=== PATIENT | female | born 1950 | race Caucasian/White ===

== ENCOUNTER 2018-04-29 08:35 | Emergency (ER) | payer MEDICARE, MEDICAID ==
--- NOTE | 2018-04-29 12:08 | RAD ---
HISTORY: Fall w/ Rt hip pain COMPARISONS: None VIEWS: 3 , Frontal view of the pelvis with frontal and frog-leg views of the right hip FINDINGS: BONE DENSITY: Normal. BONES: There is no displaced fracture. JOINTS: There is advanced osteoarthritis of the right hip. ALIGNMENT: There is no dislocation. SOFT TISSUES: Unremarkable. OTHER FINDINGS: Degenerative changes are noted of the spine.. IMPRESSION: OSTEOARTHRITIS. NO RADIOGRAPHIC EVIDENCE FOR HIP FRACTURE. X-RAYS MAY BE NEGATIVE WITH NONDISPLACED HIP FRACTURE, IF THERE IS PERSISTENT CLINICAL CONCERN, RECOMMEND CONSIDERATION OF MRI. IN THE SETTING OF CONTRAINDICATION TO MRI OR LIMITATION IN EMERGENT ACCESS TO MRI, CT WOULD BE SUGGESTED.
--- NOTE | 2018-04-29 12:24 | ED ---
Lower Extremity - HPI Summary HPI Summary: Pt presents with pain in her right hip after falling this morning. She reports she was getting coffee from the kitchen and as she turned she fell and landed on her right hip. She is not sure if her feet got caught and she lost her balance chanted up on the floor. She denies numbness tingling or weakness and no chest pain, dizziness, fatigue or lightheadedness. She said she sat on the floor for a while she was concerned that she could not get back up and she did not attempt to get back out. She crawled on all fours into another room to use her phone which she was able to do without difficulty. Her sister and her sister's came to the house to help her - sister is with her today and reports she was able to stand and ambulate without difficulty. Patient ambulated in today without pain or difficulty. She denies any history of back issues however does report and history of right thigh pain. She was referred to physical therapy however she declined as she was concerned she would have to go 4 times a week and when be a drive herself she doesn't have a car. She is not tried anything for pain prior to arrival. Denies change in bowel or bladder habits. - History of Current Complaint Chief Complaint: EDExtremityLower Stated Complaint: FALL Time Seen by Provider: 04/29/18 08:57 Hx Obtained From: Patient, Family/Laboratory Animal Caretaker - sister Pain Intensity: 3 - Allergies/Home Medications Allergies/Adverse Reactions: Allergies Allergy/AdvReac Type Severity Reaction Status Date / Time Sulfa (Sulfonamide Allergy Rash Verified 04/29/18 08:44 Antibiotics) PMH/Surg Hx/FS Hx/Imm Hx Infectious Disease History: No Infectious Disease History: Denies: Traveled Outside the [place] in Last 30 Days - Social History Alcohol Use: None Substance Use Type: Reports: None Smoking Status (MU): Never Smoked Tobacco Physical Exam Vital Signs On Initial Exam: Initial Vitals Temp Pulse Resp BP Pulse Ox 98.3 F 94 16 135/99 96 04/29/18 08:39 04/29/18 08:39 04/29/18 08:39 04/29/18 08:39 04/29/18 08:39 Diagnostics - Vital Signs Vital Signs Temp Pulse Resp BP Pulse Ox 04/29/18 08:39 98.3 F 94 16 135/99 96 - Laboratory Lab Statement: Any lab studies that have been ordered have been reviewed, and results considered in the medical decision making process. Discharge - Sign-Out/Discharge Documenting (check all that apply): Patient Departure - Discharge Plan Condition: Stable Disposition: HOME Patient Education Materials: Fall Prevention for Older Adults (ED), Hip Pain ( ED) Referrals: Nita Boyce MD [Primary Care Provider] - Additional Instructions: Your x-ray does not reveal a fracture today however if your pain persists or worsens, you may benefit from additional imaging. In the meantime, you may apply ice, take ibuprofen with food and perform gentle range of motion stretches to prevent stiffness. If your soreness persists beyond one to 2 weeks , follow up with her PCP. If it is worse in the meantime, return to the emergency department. Additionally, we discussed your referral by her PCP to physical therapy to strengthen and help with pain in your left thigh. This may help prevent future falls. Call today to reschedule that appointment once your right hip is feeling better. - Billing Disposition and Condition Condition: STABLE Disposition: Home
[2018-04-29 13:10] VITALS: BP 152/99
== END 2018-04-29 13:09 | disposition home or self-care (01) ==
LOC: ED 08:35
DX: M25.551 Pain in right hip (principal)
CPT/HCPCS: 99282

== ENCOUNTER 2018-12-16 19:35 | Emergency (ER) | payer MEDICARE, MEDICAID ==
--- NOTE | 2018-12-16 20:08 | ED ---
HPI Chest Pain - HPI Summary HPI Summary: A 68 y/o female presents to [facility] with a chief complaint of chest pain starting around 18:30 today, lasting for a few minutes. She had lunch around noon, took a nap at around 14:00 and woke up between 18:00 and 19:00 today. She claims that her chest pain was mid sternal. She denies pain radiating to her neck back or shoulder. She denies N/V or diaphoresis. She claims that she has experienced similar discomfort yesterday. She denies a Hx of DM, but has a Hx of HTN. She is a former smoker, quitting when she was young. She reports gaining weight. She denies taking medications for BP. FHx of [place], mother and father both from [place]. - History of Current Complaint Chief Complaint: EDChestPainROMI Time Seen by Provider: 12/16/18 20:01 Hx Obtained From: Patient Hx Last Menstrual Period: post menopause Onset/Duration: Started Hours Ago, Resolved Timing: Intermittent - lasting minutes Initial Severity: Moderate Current Severity: None Pain Intensity: 0 Pain Scale Used: 0-10 Numeric Chest Pain Location: Mid Sternal Chest Pain Radiates: No Character: Other: - discomfort Aggravating Factor(s): Nothing Alleviating Factor(s): Nothing Associated Signs and Symptoms: Positive: Other: - recently gained weight. Negative: Fever, Nausea, Vomiting - Allergy/Home Medications Allergies/Adverse Reactions: Allergies Allergy/AdvReac Type Severity Reaction Status Date / Time Sulfa (Sulfonamide Allergy Rash Verified 12/16/18 20:09 Antibiotics) PMH/Surg Hx/FS Hx/Imm Hx Endocrine/Hematology History: Denies: Hx Anticoagulant Therapy, Hx Blood Disorders Cardiovascular History: Reports: Hx Hypertension Musculoskeletal History: Reports: Hx Arthritis, Other Musculoskeletal History - Rt thigh pain - chronic (declined PT) Sensory History: Reports: Hx Contacts or Glasses Opthamlomology History: Reports: Hx Contacts or Glasses - Surgical History Surgery Procedure, Year, and Place: gall bladder removed years ago Infectious Disease History: No Infectious Disease History: Denies: Traveled Outside the [place] in Last 30 Days - Family History Known Family History: Positive: Cardiac Disease, Other - [place] - Social History Alcohol Use: None Hx Substance Use: No Substance Use Type: Reports: None Hx Tobacco Use: No Smoking Status (MU): Never Smoked Tobacco Review of Systems Negative: Fever Positive: Chest Pain - PRIMARY CLINICIAN Negative: Vomiting, Nausea All Other Systems Reviewed And Are Negative: Yes Physical Exam - Summary Physical Exam Summary: Appearance: Well-appearing, Well-nourished, lying in bed comfortably Skin: Warm, dry, no obvious rash Eyes: sclera anicteric, no conjunctival pallor ENT: mucous membranes moist, pharynx appears normal Neck: Supple, nontender Respiratory: Clear to auscultation, no signs of respiratory distress Cardiovascular: mild tachycardia. Normal S1, S2. No murmurs. Normal distal pulses in tibial and radial bilaterally. Abdomen: Soft, nontender, normal active bowel sounds present Musculoskeletal: Normal, Strength/ROM Intact Neurological: A&Ox3, awake and alert, mentation is normal, speech is fluent and appropriate Psychiatric: affect is normal, does not appear anxious or depressed Triage Information Reviewed: Yes Vital Signs On Initial Exam: Initial Vitals Temp Pulse Resp BP Pulse Ox 98.6 F 106 20 168/92 100 12/16/18 19:43 12/16/18 19:43 12/16/18 19:43 12/16/18 19:43 12/16/18 19:43 Vital Signs Reviewed: Yes Diagnostics - Vital Signs Vital Signs Temp Pulse Resp BP Pulse Ox 12/16/18 19:43 98.6 F 106 20 168/92 100 - Laboratory Result Diagrams: 12/16/18 20:39 12/16/18 20:39 Lab Statement: Any lab studies that have been ordered have been reviewed, and results considered in the medical decision making process. - EKG 19:55 Cardiac Rate: Tachycardia - 102 bpm EKG Rhythm: Sinus Tachycardia Summary of EKG Findings: Sinus tachycardia at 102 bpm, inferior infarct, old. Re-Evaluation - Re-Evaluation First Eval Re-Evaluation Time: 01:17 Change: Improved Comment: No further chest pain, looks well, safe for DC. Chest Pain Course/Dx - Course Course Of Treatment: A 68 y/o female presents to [facility] with a chief complaint of chest pain starting around 18:30 today, lasting for a few minutes. The physical exam revealed mild tachycardia. EKG at 19:55 showed Sinus tachycardia at 102 bpm, inferior infarct, old. In the ED course the patient was given Aspirin PO. Blood work and chemistries obtained and are WNL. HEART score is 3. The patient will be discharged home and follow up with her PCP. She is agreeable with this plan. - Diagnoses Provider Diagnoses: Chest pain Discharge - Sign-Out/Discharge Documenting (check all that apply): Patient Departure - DC Patient Received Moderate/Deep Sedation with Procedure: No - Discharge Plan Condition: Good Disposition: HOME Patient Education Materials: Chest Pain (ED) Referrals: Nita Boyce MD [Primary Care Provider] - 1 Week - Billing Disposition and Condition Condition: GOOD Disposition: Home - Attestation Statements Document Initiated by Ayden: Yes Documenting Scribe: Luis A Krishnamurthy Provider For Whom Ayden is Documenting (Include Credential): Sridhar Winkler MD Scribe Attestation: ILuis A, ciroibed for Sridhar Winkler MD on 01/02/19 at 1004. Scribe Documentation Reviewed: Yes Provider Attestation: The documentation as recorded by the Luis A mata accurately reflects the service I personally performed and the decisions made by me, Sridhar Winkler MD Status of Scribe Document: Viewed
[2018-12-16] MEDS ORDERED: Aspirin TAB* 325 MG PO ONE (20:43)
[2018-12-16 20:48] LABS: ABS Basophils 0 10^3/ul (0-0.2); ABS Eosinophils 0 10^3/ul (0-0.6); ABS Monocytes 0.5 10^3/ul (0-0.8); ABS Neutrophils 3.4 10^3/ul (1.5-7.7); ABS Nucleated RBC 0 10^3/ul; Eosinophil % 0.4 %; Hematocrit 41 % (33-41); Hemoglobin 13.9 g/dL (12.0-16.0); Lymphocyte % 20.4 %; Mean Corpuscular HGB Conc 34 g/dL (31-36); Mean Corpuscular Hemoglobin 28 pg (27-31); Mean Corpuscular Volume 81 fL (80-97); Mean Platelet Volume 7.8 fL (7.4-10.4); Nucleated Red Blood Cells % 0; Platelet Count 296 10^3/uL (150-450); Red Blood Count 5.04 10^6 /uL (3.70-4.87); Red Cell Distribution Width 14 % (10.5-15)
[2018-12-16] MEDS ORDERED: Aspirin 81 mg CHEW TAB* 81 MG TAB.CHEW ONE (20:50)
[2018-12-16 21:07] LABS: Albumin 4.1 g/dL (3.2-5.2); Albumin/Globulin Ratio 1.8 (1-3); BUN/Creatinine Ratio 10.1 (8-20); Calcium 9.4 mg/dL (8.6-10.3); EGFR African American 101.8 (>60); EGFR Non-African American 84.1 (>60); Globulin 2.3 g/dL (2-4); Potassium 3.8 mmol/L (3.5-5.0); Total Bilirubin 0.7 mg/dL (0.2-1.0); Total Protein 6.4 g/dL (6.4-8.9)
[2018-12-17 01:39] VITALS: BP 153/93
== END 2018-12-17 01:40 | disposition home or self-care (01) ==
LOC: ED 19:35
DX: R07.89 Other chest pain (principal); R00.0 Tachycardia, unspecified; R63.5 Abnormal weight gain; G89.29 Other chronic pain; M79.651 Pain in right thigh; Z88.2 Allergy status to sulfonamides; Z87.891 Personal history of nicotine dependence
CPT/HCPCS: 36415; 80053; 84484; 85025; 93005; 99284; A9270-GY

== ENCOUNTER 2019-06-08 09:14 | Inpatient (IN) | payer MEDICARE, MEDICAID ==
[2019-06-08 10:08] LABS: ABS Lymphocytes 1.3 10^3/ul (1.0-4.8); ABS Monocytes 0.7 10^3/ul (0-0.8); ABS Neutrophils 6.3 10^3/ul (1.5-7.7); Eosinophil % 0.3 %; Hematocrit 43 % (35-47); Hemoglobin 14.5 g/dL (12.0-16.0); Mean Corpuscular HGB Conc 34 g/dL (31-36); Mean Corpuscular Hemoglobin 28 pg (27-31); Mean Corpuscular Volume 82 fL (80-97); Mean Platelet Volume 8.1 fL (7.4-10.4); Nucleated Red Blood Cells % 0.1; Platelet Count 338 10^3/uL (150-450); Red Blood Count 5.19 10^6 /uL (3.70-4.87); Red Cell Distribution Width 14 % (10-15); White Blood Count 8.4 10^3/uL (3.5-10.8)
--- NOTE | 2019-06-08 10:15 | ED ---
Neurological HPI - HPI Summary HPI Summary: Pt presents to the ED with sister with symptoms of antipsychotic-induced parkinsonism. Pt has been on Navil for many years until this was discontinued. After which she was placed on Prolixin in May 2018. She was subsequently placed on 1mg Cogentin daily. Approximately 4mos later, she began to develop confusion and memory loss. States her symptoms of shaking and inability to respond to questions and slow to respond in general has been becoming worse. She had a follow up with her PCP and had a brain CT obtained which showed no dementia or other acute findings. She also had a follow up with her psychiatrist, Gladys Posada and her counselor Kristyn Mansfield. 2 weeks ago, her medications were cut in including her Cogentin. Since that time, her symptoms have become drastically worse. Her sister at bedside she is getting to the point where she can no longer do simple daily activities including making food at home. She continues to eat and drink OK per patient. Denies any pain, recent illness or other symptoms. States she is not suicidal, but does not want to live in this misery. Prior to her medication changes in 2018 , she denied having any of these symptoms including confusion/memory loss. - History of Current Complaint Chief Complaint: EDNeurologicalDeficit Stated Complaint: MHE PER PT Time Seen by Provider: 06/08/19 09:31 Hx Obtained From: Patient Hx Last Menstrual Period: post menopause Onset/Duration: Gradual Onset Timing: Constant Onset Severity: Severe Current Severity: Severe Pain Intensity: 0 Character: Confusion, Other: - memory loss, confusion, slow to respond Associated Signs and Symptoms: Positive: Visual Changes, Memory Loss, Confusion TPA Considered: No - Allergy/Home Medications Allergies/Adverse Reactions: Allergies Allergy/AdvReac Type Severity Reaction Status Date / Time Sulfa (Sulfonamide Allergy Rash Verified 06/08/19 09:26 Antibiotics) Home Medications: Home Medications Cholecalciferol TAB* [Vitamin D TAB*] 50,000 units PO WEEKLY 06/08/19 [History Confirmed 06/08/19] PMH/Surg Hx/FS Hx/Imm Hx Previously Healthy: Yes Endocrine/Hematology History: Denies: Hx Anticoagulant Therapy, Hx Blood Disorders Cardiovascular History: Reports: Hx Hypertension Musculoskeletal History: Reports: Hx Arthritis, Other Musculoskeletal History - Rt thigh pain - chronic (declined PT) Sensory History: Reports: Hx Contacts or Glasses Opthamlomology History: Reports: Hx Contacts or Glasses - Surgical History Surgery Procedure, Year, and Place: gall bladder removed years ago - Immunization History Hx Pertussis Vaccination: No Immunizations Up to Date: Yes Infectious Disease History: No Infectious Disease History: Denies: Traveled Outside the [place] in Last 30 Days - Family History Known Family History: Positive: Cardiac Disease, Other - [place] - Social History Occupation: Unemployed Lives: Alone Alcohol Use: None Hx Substance Use: No Substance Use Type: Reports: None Hx Tobacco Use: No Smoking Status (MU): Never Smoked Tobacco Review of Systems Constitutional: Negative Negative: Fever, Chills, Fatigue, Skin Diaphoresis Negative: Blurred Vision Negative: Palpitations, Chest Pain Negative: Shortness Of Breath, Cough Negative: Arthralgia, Myalgia Skin: Negative Neurological: Other - parkinsonian symptoms Negative: Weakness, Paresthesia, Numbness, Syncope Positive: Depressed All Other Systems Reviewed And Are Negative: Yes Physical Exam Triage Information Reviewed: Yes Vital Signs On Initial Exam: Initial Vitals Temp Pulse Resp BP Pulse Ox 97.9 F 118 18 153/103 98 06/08/19 09:16 06/08/19 09:16 06/08/19 09:16 06/08/19 09:16 06/08/19 09:16 Vital Signs Reviewed: Yes Appearance: Positive: Well-Appearing, Well-Nourished Skin: Positive: Warm, Skin Color Reflects Adequate Perfusion Head/Face: Positive: Normal Head/Face Inspection Eyes: Positive: EOMI, TONY, Conjunctiva Clear Neck: Positive: Supple, Nontender, No Lymphadenopathy Respiratory/Lung Sounds: Positive: Clear to Auscultation, Breath Sounds Present Cardiovascular: Positive: RRR, Pulses are Symmetrical in both Upper and Lower Extremities Musculoskeletal: Positive: Normal, Strength/ROM Intact Neurological: Positive: Abnormal Gait, Ataxic Gait, Speech Normal Psychiatric: Positive: Depressed AVPU Assessment: Alert Procedures - Sedation Patient Received Moderate/Deep Sedation with Procedure: No Diagnostics - Vital Signs Vital Signs Temp Pulse Resp BP Pulse Ox 06/08/19 09:37 112 164/97 96 06/08/19 09:34 5 06/08/19 09:16 97.9 F 118 18 153/103 98 - Laboratory Result Diagrams: 06/08/19 09:57 06/08/19 09:57 Lab Statement: Any lab studies that have been ordered have been reviewed, and results considered in the medical decision making process. 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 Non-Paretic Hand: Both Correctly Best Gaze (Only Horizontal Eye Movement): Normal Visual Field Testing: No Visual Loss Facial Paresis-Pt to Smile & Close Eyes or Grimace Symmetry: Normal/Symmetrical Motor Function - Right Arm: No Drift-Holds 10 Seconds Motor Function - Left Arm: No Drift-Holds 10 Seconds Motor Function - Right Leg: No Drift-Holds 10 Seconds Motor Function - Left Leg: No Drift-Holds 10 Seconds Limb Ataxia-Must be out of Proportion to Weakness Present: Absent Sensory (Use Pinprick to Test Arms/Legs/Trunk/Face): Normal Best Language (Describe Picture, Name Items): No Aphasia Dysarthria (Read Several Words): Normal Extinction and Inattention: No Abnormality Total Score: 0 Course/Dx - Course Course Of Treatment: Pt presents to the ED with sister with symptoms of antipsychotic-induced parkinsonism. Pt has been on Navil for many years until this was discontinued. After which she was placed on Prolixin in May 2018. She was subsequently placed on 1mg Cogentin daily. Approximately 4mos later, she began to develop confusion and memory loss. States her symptoms of shaking and inability to respond to questions and slow to respond in general has been becoming worse. She had a follow up with her PCP and had a brain CT obtained which showed no dementia or other acute findings. She also had a follow up with her psychiatrist, Gladys Posada and her counselor Kristyn Mansfield. 2 weeks ago , her medications were cut in including her Cogentin. Since that time, her symptoms have become drastically worse. Her sister at bedside she is getting to the point where she can no longer do simple daily activities including making food at home. She continues to eat and drink OK per patient. Denies any pain, recent illness or other symptoms. States she is not suicidal, but does not want to live in this misery. Prior to her medication changes in 2018 , she denied having any of these symptoms including confusion/memory loss. She is cleared for MHE at this time. - Differential Dx Differential Diagnoses Neuro: Positive: Other - parkinsonian symptoms, EPS, cogweeling, dystonia, medication reaction, schizophrenia - Diagnoses Provider Diagnoses: Extrapyramidal and movement disorder Discharge ED - Sign-Out/Discharge Documenting (check all that apply): Patient Departure All imaging exams completed and their final reports reviewed: No - Discharge Plan Condition: Fair Disposition: ADMITTED TO [facility] - Billing Disposition and Condition Condition: FAIR Disposition: Admitted to [facility]
[2019-06-08 10:26] LABS: Albumin/Globulin Ratio 1.6 (1-3); BUN/Creatinine Ratio 16.9 (8-20); C Reactive Protein 5.91 mg/L (<8.01); Calcium 9.5 mg/dL (8.6-10.3); EGFR Non-African American 90.1 (>60); Globulin 2.5 g/dL (2-4); Magnesium 2.1 mg/dL (1.9-2.7); Potassium 3.9 mmol/L (3.5-5.0); Total Bilirubin 0.6 mg/dL (0.2-1.0); Total Protein 6.5 g/dL (6.4-8.9)
[2019-06-08] MEDS ORDERED: Al Hydrox/Mg Hydrox/Simet LIQ* 30 ML UDC PO PRN (12:49)
[2019-06-08] MEDS ORDERED: Acetaminophen TAB* 325 MG PO PRN (12:49)
[2019-06-08] MEDS: Vitamin THERAPEUTIC TAB PO SCH (13:12)
[2019-06-08 16:17] LABS: TSH (Thyroid Stimulating Horm) 1.53 mcIU/mL (0.34-5.60)
--- NOTE | 2019-06-08 18:55 | CONS ---
CONSULTATION REPORT: ADDENDUM: FAMILY HISTORY: Positive for heart disease. REVIEW OF SYSTEMS: The patient denies any bowel problems. Her appetite has been good. She denied chest pain, shortness of breath. She feels her weight has been stable. PHYSICAL EXAMINATION: Heart rate 112, respirations 24, O2 saturation 100% on room air, blood pressure 155/120. Height 5 feet 1 inch, weight 180 pounds, BMI 34.0. She is a pleasant elderly woman, somewhat flat affect. She responds appropriately and is cooperative and pleasant. HEENT: No signs of head trauma. Pupils equal and round. Neck is supple. No JVD, adenopathy, or thyromegaly. Heart and lungs are clear to auscultation and percussion. Heart is regular without murmurs or rubs. Abdomen is obese. No masses or organomegaly. No tenderness. There is no pedal edema. She is oriented x3. She has a rather marked Parkinsonian tremor of the hands and mouth. IMPRESSION AND RECOMMENDATIONS: Her tachycardia may well be related to the stress of her hospitalization. Add-on TSH is pending, assuming this is normal to have an echocardiogram tomorrow to make sure there is no underlying heart disease. 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 I will discuss with the on- call neurologist possible treatment recommendations. Thank you for allowing me to see your patient in consultation. [id number]/[facility] #: [id number] ADOLFO
--- NOTE | 2019-06-08 19:12 | CONS ---
CONSULTATION REPORT: DATE OF CONSULT: 06/08/19 HISTORY OF PRESENT ILLNESS: This 68-year-old woman presented to the emergency room today and was admitted to the mental health unit. The patient has had symptoms of antipsychotic-induced parkinsonism. She had been on Advil for many years until it was discontinued. About a year ago, she was placed on Prolixin and subsequently put on Cogentin 1 mg daily. Four months later, she developed confusion, memory loss and shaking. She says in the past month the shaking has gotten worse. Her psychiatrist cut her Prolixin and Cogentin both in half and her symptoms have become worse. PAST MEDICAL HISTORY: The patient has had gallbladder surgery. She is a nulligravida. SOCIAL HISTORY: She does not smoke or use alcohol. Her surrogate decision maker is her sister, Sarah. FAMILY HISTORY: Positive for heart disease. REVIEW OF SYSTEMS: The patient denies any bowel problems. Her appetite has been good. She denied chest pain, shortness of breath. She feels she has lost about 20 pounds recently for no reason she is aware of PHYSICAL EXAMINATION: Heart rate 112, respirations 24, O2 saturation 100% on room air, blood pressure 155/120. Height 5 feet 1 inch, weight 180 pounds, BMI 34.0. She is a pleasant elderly woman, somewhat flat affect. She responds appropriately and is cooperative and pleasant. HEENT: No signs of head trauma. Pupils equal and round. Neck is supple. No JVD, adenopathy, or thyromegaly. Heart and lungs are clear to auscultation and percussion. Heart is regular without murmurs or rubs. Abdomen is obese. No masses or organomegaly. No tenderness. There is no pedal edema. She is oriented x3. She has a rather marked Parkinsonian tremor of the hands and mouth. IMPRESSION AND RECOMMENDATIONS: Her tachycardia may well be related to the stress of her hospitalization. Add-on TSH is pending, assuming this is normal to have an echocardiogram tomorrow to make sure there is no underlying heart disease. 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 When her antipsychotic regimen is re-started, re-starting benztropine should be considered. It is possible the dose had been decreased due to side effects, and her primary psychiatrist should be involved in that decision. Thank you for allowing me to see your patient in consultation. [id number]/[facility] #: [id number] A- [id number]/[facility] #: [id number] ADOLFO
[2019-06-09] MEDS ORDERED: Pneumococcal *Vac Polyvalent 0.5 ML VIAL IM ONE (09:00)
--- NOTE | 2019-06-09 10:46 | HP ---
H&P (Free Text) History and Physical: Justification for admission: Immediate Safety. CC " I dont know" The patient was brought to [facility] by her sister upon noticing confusion and changes in the patients behavior. The patient reported living alone and feels lonely at times. Per the emergency room evaluation the patient verbalized to her family that she is not sure if she is going to make it. They were not sure what she was referring to and thought she was talking about suicide. Patient has been on Navane for 30 years and this was discontinued from the market and in May 2018 was started on prolixin and cogentin. Approximately 4 months ago her tremor in both of her hands began to get worse. The patient denied access to firearms and her family confirmed this to be true. The patient reported poor sleep due to moving her legs around. Patient has had diminished appetite. The patient denied homicidal ideation intent or plan. The patient denied auditory and/ or visual hallucinations. MDD Denied feeling depressed. Denied having diminished interests which were found to be enjoyable in the past. Denied having crying spells , feeling empty inside , feelings of hopelessness , and worthlessness. Denied unintentional weight loss and appetite. Denied interruption of sleep , or feeling tired throughout the day. Denied loss of energy or lack of motivation to complete tasks. Denied overwhelming feelings of guilt or decreased concentration. Denied recurrent thoughts of . Denied thoughts that they would be better off . Anxiety Denied having symptoms of anxiety such as having times where heart feels that it is beating out of chest , sweaty palms, or shallow breathing. Denied having uncomfortable or intrusive thoughts. Denied feeling restless, high strung, or worrying too much most of the time. Bipolar Denied symptoms of soumya such as having many ideas at once. Denied increased talkativeness where no one can interrupt. Denied feeling irritable most of the time while having an persistent abundance of energy most of the day without the use of energy drinks, stimulants, or recreational drug use. Denied an increase in intensity in goal directed activities. Denied having the decreased need to sleep for days , having prolonged elevated mood , or feeling on top of the world. Denied impulsive risky sexual encounters. Denied spending money recklessly , going on spending sprees wiping out savings. Denied impulsively traveling out of town or country, having super coffey, and unrealistic wealth or fame. Psychosis Does not endorse hearing things that other people do not hear or seeing things other people do not see. Denied feeling that TV is making references. Denied feeling that people are spying , following , or reading their thoughts. Phobias: Patient denied having excessive fear of a particular thing or situation. Eating disorders: Patient denied having excessive eating habits or feelings of guilt after eating. Denied repeated episodes of self induced vomiting after eating. PTSD Denied flashbacks, nightmares and avoidance of a prior traumatic event. PAST PSYCHIATRIC HISTORY: Prior Diagnosis : Schizophrenia History of past Psychiatric Hospitalizations: 1 prior psychiatric admission in 1968 at [facility] History of past suicide/homicide attempts : 1 past suicide attempt in 1968. No history of violence. Outpatient follow-up: [facility] Dr. Posada Medications: Past trials of medications include Navane for 30 years and was discontinued in May 2018. prolixin 10mg po daily and Cogentin 2mg BID Guardianship: None. FAMILY HISTORY: - Suicide: Cousin from suicide. - Mental illness: Denied a history of mental health in immediate family members. - Substance abuse: Denied substance abuse among family members. SUBSTANCE ABUSE HISTORY: Denied using alcohol, tobacco, heroin cocaine or other illicit substances. Denied abusing pills for recreational use. Denied past Substance abuse treatment. SOCIAL HISTORY: - Denied a history of childhood physical and or sexual abuse Born in [place] and raised by both parents. - Education: Completed high school. No history of special education. 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 - Relationship: Single and has no children. - Legal history: Denied - service history: Denied PAST MEDICAL HISTORY: Restless legs syndrome, Hypertension. - Allergies: Sulfa drugs Physical Exam: Please see ED note Mental Status Exam on Admission APPEARANCE : 68 year old female who appears stated age. Patient is not malodourous, and appears to have fair hygiene and grooming. BEHAVIOR: Cooperative , calm EYE CONTACT: Fair PSYCHOMOTOR ACTIVITY: No agitation MOVEMENTS: Bilateral upper extremity resting tremor and andreas mouth movements SPEECH : Normal rate, rhythm, volume and tone. MOOD : "Fine " AFFECT : Type is depressed, Range is blunted with shallow depth Mood Incongruent THOUGHT PROCESS: Formulated and organized in a logical, linear goal directed manner. THOUGHT CONTENT: no delusions, obsessions, phobias or preoccupations. PERCEPTION: No current auditory or visual hallucinations. Doesnt appear to be responding to internal cues. No evidence of depersonalization , de-realization, or illusions SUICIDALITY passive suicidal ideation HOMICIDALITY Denied homicidal ideation, intent or plan. Insight/judgment: Poor insight and judgment ORIENTATION: Oriented to self, month, state, season current president, not to year or place 1/3 delayed word recall. Clock drawing [place] and numbers completed but incorrect clock time and hands Diagnosis on Admission: Schizophrenia. Tardive Dyskinsia. Drug induced Parkinsonism Vs. 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 Plan #Admit to BSU, Q15 minute observation. Start regular diet. Encourage participation in activities on the milieu. #Patient evaluated in ED and was determined by the emergency room Physician to be medically fit for admission to the BSU. # Justification for Admission: For immediate safety per outlined in the [place] Mental Hygiene Code. # The patient requires psychiatric inpatient admission at this time to assure safety, receive treatment and work toward stabilization. # Labs ordered: CBC, CMP, UDS, TSH, HBA1c, TSH, Toxicology screen, Urine analysis, and lipid profile. EKG ordered for risk of QT prolongation of antipsychotic medication. # Obtain collateral information obtained from her sister. # Collaboration with Social Work # Nursing care facility resources to be provided to family # AIMS score 17 due to long history of 1st generation anti- psychotic # Discontinue prolixin and cogentin due to side effects. Start seroquel 100mg po qhs Data shows less risk for Parkinsons features # Neurology contacted and outpatient follow up appointment will be arranged for possible Parkinsons disease evaluation # Hospitalist consult completed for hypertension and tachycardia and plan to start treatment. #Goals before discharge include: Assure safety Tentative Discharge: Pending psychiatric stabilization The risks, benefits, and alternative treatment options were discussed as well as the risks of refusing treatment. After this discussion and an acknowledgement of this understanding was made. A risk/ benefit assessment of treatment was considered and discussed with the patient. When comparing the risks of treatment with the dangers of not receiving treatment, the benefits of treatment outweigh the treatment risks at this time. Risks of allergy, suicidal ideation, behavioral changes, dystonia, rashes, electrolyte imbalances, movement disorders, cardiac conduction changes, serotonin syndrome, metabolic risks and NMS were among some of the risks discussed. Sodium 137 mmol/L (135-145) 06/08/19 09:57 Potassium 3.9 mmol/L (3.5-5.0) 06/08/19 09:57 BUN 11 mg/dL (6-24) 06/08/19 09:57 Creatinine 0.65 mg/dL (0.51-0.95) 06/08/19 09:57 Calcium 9.5 mg/dL (8.6-10.3) 06/08/19 09:57 Magnesium 2.1 mg/dL (1.9-2.7) 06/08/19 09:57 AST 15 U/L (13-39) 06/08/19 09:57 ALT 14 U/L (7-52) 06/08/19 09:57
--- NOTE | 2019-06-09 11:14 | ECHO ---
*[facility]* [place] [address] Fax #: [phone] Transthoracic Echocardiogram Patient: Cassie Reyes : 1950 Study Date: 06/09/2019 Age: 68 Gender: F HR: 121 bpm Height: 61 in /154.9 cm BSA: 1.81 m^2 Weight: 179.6 lb /81.6 kg BMI: 34 kg/m^2 *Abrasive Grader: * Karin Patterson [facility] *Referring Physician: * Tam Acosta *Reading Physician: * Cal Sears MD Indications: Abnormal EKG. History: Risk factors: Hypertension. Parkinson's Disease. Tremors. Conclusions Summary: - Left ventricle: Systolic function is normal. The estimated ejection fraction is 60-65%. Wall motion is normal; there are no regional wall motion abnormalities. - Right ventricle: Systolic function is normal. - Mitral valve: There is trace regurgitation. - Aortic valve: There is no evidence of stenosis. There is no significant regurgitation. - Tricuspid valve: There is trace regurgitation. - Pericardium, extracardiac: There is no significant pericardial effusion. - Pulmonary arteries: Systolic pressure can not be accurately estimated. - Study data: No prior study is available for comparison. Study data: Transthoracic echocardiogram. Procedure: Transthoracic echocardiography was performed. Image quality was fair. The study was technically limited due to patient tremors. Complete 2D, spectral Doppler, and color flow Doppler. Location: Echo laboratory. Patient status: Inpatient. Patient room number: 214-2. No prior study is available for comparison. Rhythm: Atrial flutter. Findings Left ventricle: The cavity size is below normal. Wall thickness is mildly increased. Systolic function is normal. The estimated ejection fraction is 60-65%. Wall motion is normal; there are no regional wall motion abnormalities. Doppler parameters are consistent with abnormal left ventricular relaxation (grade 1 diastolic dysfunction). Right ventricle: The cavity size is at the upper limits of normal. Wall thickness is mildly increased. The moderator band is in a normal position. Systolic function is normal. Left atrium: The atrium is normal in size. Right atrium: The atrium is normal in size. Mitral valve: The leaflets are mildly thickened. There is no evidence of stenosis. There is trace regurgitation. Aortic valve: The valve is trileaflet. The leaflets are mildly thickened. There is no evidence of stenosis. There is no significant regurgitation. Tricuspid valve: The leaflets are normal thickness. There is no evidence of stenosis. There is trace regurgitation. Pulmonic valve: Poorly visualized. There is no evidence of stenosis. Aorta: Aortic root: The aortic root is appears normal. Ascending aorta: The ascending aorta is appears normal. Aortic arch: The aortic arch is appears normal. Pericardium: A prominent pericardial fat pad is present. There is no significant pericardial effusion. Pulmonary arteries: The main pulmonary artery is normal-sized. Systolic pressure can not be accurately estimated. Systemic veins: Inferior vena cava: The vessel is normal in size. There is (>= 50%) respiratory change in the IVC dimension. Measurements Left ventricle Value Ref Right atrium continued Value Ref MELINDA, LAX (L) 2.8 cm 3.8 - 5.2 ML dim, ES, A4C 3.3 cm 2.6 - 4.4 ESD, LAX (L) 1.8 cm 2.2 - 3.5 SI dim, ES, A4C 4.1 cm 3.4 - 5.3 FS, LAX 35 % 27 - 45 Estimated RAP 3 mm Hg --------- PW, ED, LAX (H) 1.1 cm 0.6 - 0.9 FS 35 % 27 - 45 Aortic valve Value Ref PW, ED (H) 1.1 cm 0.6 - 0.9 Irma diam, ED 1.8 cm --------- E', lat irma, TDI (L) 8.5 cm/sec >=10.0 Peak v, S 1.25 m/sec -- ------- E/e', lat irma, 7 VTI, S 20.4 cm ----- ---- TDI Mean grad, S 3.0 mm Hg --------- E', med irma, TDI (L) 6.3 cm/sec >=7.0 Peak grad, S 6.0 mm Hg -- ------- E/e', med irma, 9 LVOT/AV, VTI ratio 0.83 ----- ---- TDI E', avg, TDI 7.4 cm/sec Mitral valve Value Ref E/e', avg, TDI 8 <=14 Peak E 0.6 m/sec -- ------- Peak A 0.94 m/sec --------- LVOT Value Ref Decel time 204 ms --------- Peak jimena, S 1.14 m/sec Peak E/A ratio 0.6 --------- VTI, S 17.0 cm Peak grad, S 5 mm Hg Pulmonic valve Value Ref Mean grad, S 3 mm Hg Peak v, S 1.12 m/sec --------- Peak grad, S 5.0 mm Hg --------- Ventricular septum Value Ref IVS, ED (H) 1.1 cm 0.6 - 0.9 Aortic root Value Ref Root diam 2.9 cm <4.0 Right ventricle Value Ref AW thickness, ED (H) 0.6 cm 0.1 - 0.5 Ascending aorta Value Ref MELINDA, LAX 2.6 cm AAo AP diam, S 3.0 cm --------- MELINDA minor ax, 3.4 cm 1.9 - 3.5 A4C mid Aortic arch Value Ref Arch diam 2.4 cm --------- Left atrium Value Ref AP dim, ES 3.30 cm 2.70 - Decending aorta Value Ref 3.80 Lupis peak jimena 0.79 m/sec --------- ML dim, A4C 3.6 cm SI dim, A4C 3.9 cm Inferior vena cava Value Ref Vol/bsa, ES, 1-p 13 ml/m^2 11 - 40 Diam 1.4 cm --------- A4C Vol/bsa, ES, A/L 17 ml/m^2 16 - 34 Right atrium Value Ref SI dim, ES 4.1 cm 3.4 - 5.3 Legend: (L) and (H) lalitha values outside specified reference range. Prepared and electronically signed by Cal Sears MD 06/09/2019 11:13
[2019-06-09] MEDS: Metoprolol Tartrate TAB* 25 MG PO SCH ×2 (13:46→21:25)
[2019-06-09] MEDS: Vitamin THERAPEUTIC TAB PO SCH (14:59)
[2019-06-09] MEDS ORDERED: Loperamide CAP* 2 MG PO ONE (15:17)
--- NOTE | 2019-06-09 17:13 | PN ---
Subjective Date of Service: 06/09/19 Interval History: patient seen in today, no concerns, no chest pain no shortness of breath. taking po well. Pulse remain elevated. Past Medical History: Unchanged from Admission Objective Active Medications: Acetaminophen (Tylenol Tab*) 650 mg PO Q4H PRN PRN Reason: for pain; or Temp >101 F Al Hydrox/Mg Hydrox/Simethicone (Maalox Plus*) 30 ml PO Q4H PRN PRN Reason: INDIGESTION Metoprolol Tartrate (Lopressor Tab*) 25 mg PO BID [facility] Last Admin: 06/09/19 13:46 Dose: 25 mg Multivitamins (Theragran Tab*) 1 tab PO DAILY [facility] Last Admin: 06/09/19 14:59 Dose: Not Given Quetiapine Fumarate (Seroquel Tab*) 100 mg PO BEDTIME [facility] Vital Signs - 8 hr 06/09/19 06/09/19 06/09/19 10:01 12:43 13:45 Temperature 97.6 F Pulse Rate 122 124 Respiratory 18 16 Rate Blood Pressure 158/69 144/75 (mmHg) O2 Sat by Pulse 100 Oximetry Oxygen Devices in Use Now: None Appearance: awake, alert no distress Eyes: No Scleral Icterus Ears/Nose/Mouth/Throat: NL Teeth, Lips, Gums, Mucous Membranes Moist Neck: Trachea Midline Respiratory: Symmetrical Chest Expansion and Respiratory Effort, Clear to Auscultation Cardiovascular: - - tacchycardic, no murmur, no edema Abdominal: NL Sounds; No Tenderness; No Distention Skin: No Rash or Ulcers Result Diagrams: 06/08/19 09:57 06/08/19 09:57 Assess/Plan/Problems-Billing Assessment: 68 y/o female in [facility] medicine consulted for tachycardia, sinus tach on ECG - Patient Problems (1) Sinus tachycardia Current Visit: Yes Status: Acute Code(s): R00.0 - TACHYCARDIA, UNSPECIFIED SNOMED Code(s): 61999796 Comment: Echo no dilated cardiomyopathy TSH normal 1.53 Will follow up ECH and will start her on lopressor 25 mg bid
[2019-06-09] MEDS ORDERED: QUEtiapine TAB* 100 MG PO SCH (21:00)
[2019-06-10 08:26] LABS: HDL Cholesterol 44.7 mg/dL
[2019-06-10] MEDS: Metoprolol Tartrate TAB* 25 MG PO SCH ×2 (08:44→19:51)
[2019-06-10] MEDS: Vitamin THERAPEUTIC TAB PO SCH (08:44)
--- NOTE | 2019-06-10 12:04 | DS ---
Subjective - Subjective Service Types: 23722 [facility] Day Mgmt complex over 30 min Discharge Date: 06/11/19 Subjective: CC: " Fine " Patient looks forward to seeing her cat. The patient was seen and evaluated before discharge today. The patient reported having adequate appetite and sleep. Per nursing no behavioral issues or overnight events reported. Patient reported tolerating medications without side effects. Justification for admission: Immediate Safety. CC " I dont know" The patient was brought to [facility] by her sister upon noticing confusion and changes in the patients behavior. The patient reported living alone and feels lonely at times. Per the emergency room evaluation the patient verbalized to her family that she is not sure if she is going to make it. They were not sure what she was referring to and thought she was talking about suicide. Patient has been on Navane for 30 years and this was discontinued from the market and in May 2018 was started on prolixin and cogentin. Approximately 4 months ago her tremor in both of her hands began to get worse. The patient denied access to firearms and her family confirmed this to be true. The patient reported poor sleep due to moving her legs around. Patient has had diminished appetite. The patient denied homicidal ideation intent or plan. The patient denied auditory and/ or visual hallucinations. MDD Denied feeling depressed. Denied having diminished interests which were found to be enjoyable in the past. Denied having crying spells , feeling empty inside , feelings of hopelessness , and worthlessness. Denied unintentional weight loss and appetite. Denied interruption of sleep , or feeling tired throughout the day. Denied loss of energy or lack of motivation to complete tasks. Denied overwhelming feelings of guilt or decreased concentration. Denied recurrent thoughts of . Denied thoughts that they would be better off . Anxiety Denied having symptoms of anxiety such as having times where heart feels that it is beating out of chest , sweaty palms, or shallow breathing. Denied having uncomfortable or intrusive thoughts. Denied feeling restless, high strung, or worrying too much most of the time. Bipolar Denied symptoms of soumya such as having many ideas at once. Denied increased talkativeness where no one can interrupt. Denied feeling irritable most of the time while having an persistent abundance of energy most of the day without the use of energy drinks, stimulants, or recreational drug use. Denied an increase in intensity in goal directed activities. Denied having the decreased need to sleep for days , having prolonged elevated mood , or feeling on top of the world. Denied impulsive risky sexual encounters. Denied spending money recklessly , going on spending sprees wiping out savings. Denied impulsively traveling out of town or country, having super coffey, and unrealistic wealth or fame. Psychosis Does not endorse hearing things that other people do not hear or seeing things other people do not see. Denied feeling that TV is making references. Denied feeling that people are spying , following , or reading their thoughts. Phobias: Patient denied having excessive fear of a particular thing or situation. Eating disorders: Patient denied having excessive eating habits or feelings of guilt after eating. Denied repeated episodes of self induced vomiting after eating. PTSD Denied flashbacks, nightmares and avoidance of a prior traumatic event. PAST PSYCHIATRIC HISTORY: Prior Diagnosis : Schizophrenia History of past Psychiatric Hospitalizations: 1 prior psychiatric admission in 1968 at [facility] History of past suicide/homicide attempts : 1 past suicide attempt in 1968. No history of violence. Outpatient follow-up: [facility] Dr. Posada Medications: Past trials of medications include Navane for 30 years and was discontinued in May 2018. prolixin 10mg po daily and Cogentin 2mg BID Guardianship: None. FAMILY HISTORY: - Suicide: Cousin from suicide. - Mental illness: Denied a history of mental health in immediate family members. - Substance abuse: Denied substance abuse among family members. SUBSTANCE ABUSE HISTORY: Denied using alcohol, tobacco, heroin cocaine or other illicit substances. Denied abusing pills for recreational use. Denied past Substance abuse treatment. SOCIAL HISTORY: - Denied a history of childhood physical and or sexual abuse Born in [place] and raised by both parents. - Education: Completed high school. No history of special education. 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 - Relationship: Single and has no children. - Legal history: Denied - service history: Denied PAST MEDICAL HISTORY: Restless legs syndrome, Hypertension. - Allergies: Sulfa drugs Physical Exam: Please see ED note Mental Status Exam on Admission APPEARANCE : 68 year old female who appears stated age. Patient is not malodourous, and appears to have fair hygiene and grooming. BEHAVIOR: Cooperative , calm EYE CONTACT: Fair PSYCHOMOTOR ACTIVITY: No agitation MOVEMENTS: Bilateral upper extremity resting tremor and andreas mouth movements SPEECH : Normal rate, rhythm, volume and tone. MOOD : "Fine " AFFECT : Type is depressed, Range is blunted with shallow depth Mood Incongruent THOUGHT PROCESS: Formulated and organized in a logical, linear goal directed manner. THOUGHT CONTENT: no delusions, obsessions, phobias or preoccupations. PERCEPTION: No current auditory or visual hallucinations. Doesnt appear to be responding to internal cues. No evidence of depersonalization , de-realization, or illusions SUICIDALITY passive suicidal ideation HOMICIDALITY Denied homicidal ideation, intent or plan. Insight/judgment: Poor insight and judgment ORIENTATION: Oriented to self, month, state, season current president, not to year or place 1/3 delayed word recall. Clock drawing andreafski and numbers completed but incorrect clock time and hands Diagnosis on Admission: Schizophrenia. Tardive Dyskinsia. Drug induced Parkinsonism Vs. Neuro cognitive disorder due to Parkinsons disease Diagnosis on Discharge: Schizophrenia. Tardive Dyskinsia. Drug induced Parkinsonism Vs. Neuro cognitive disorder due to Parkinsons disease Vs Normal pressure hydrocephalus. Condition at the time of discharge: At the time of discharge patient showed improvement of sleep and appetite. The patient was not a danger to self or others. The patient denied suicidal ideation, intent or plan. The patient denied homicidal targets, ideation, intent or plan. This patient participated in psychosocial rehabilitation and gained some insight into problems. The patient gained insight into mental illness, triggers, and treatment. The patient took medication as prescribed. The patient denied side effects of medication and objective signs of side effects were not evident. Therapy Resources were offered to the patient. Patient was given a supply of prescriptions at the time of discharge. The patient plans to attend follow up care with the follow up arrangements that were discussed and put in place. Patient was asked to keep appointments as scheduled, take medication as prescribed, have routine follow up care with their primary care physician and refrain from any use of alcohol or drugs. Objective - General Observations Appearance: Neat Appears Stated Age: Yes Stature: Thin Posture: Slumped Eye Contact: Average Behavior/Activity: WNL - Interaction Observations Attitude Towards Examiner: Cooperative Stated Mood: Euthymic Affect: Restricted Speech Pattern/Tone: Clear Thought Process: Coherent Perception: WNL Thought Content: WNL Hallucination Type: None Delusion Type: None - Cognitive Function Orientation: Person Level of Consciousness: Awake - Medication Compliance Cooperative with Inpatient Medication Regimen: Yes - Group Participation Participates in Group Activities: Partial Treatment Course & Assessment Clinical Course & Impression: Hospital course part A: 68 year old with history of schizophrenia and 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 Hospital course part B: Labs ordered included CBC, CMP, UDS, TSH, HBA1c, TSH, Toxicology screen, EKG , ECHO, Urine analysis, and lipid profile. Labs were reviewed and did not require the need for further evaluation. Vital signs were monitored during the course of admission. EKG ordered for risk of QT prolongation of antipsychotic medication. QTc 419. ECHO completed EF 60-65% Trace Mitral and Tricuspid regurgitation, please see report for more details. CT brain w/o report on 05/26/19 reads ventriculomegaly and possible Normal pressure hydrocephalus. Initially the patients family reported the CT brain w/o to be normal once the report was received it was discovered that NPH may be a possibility. The patient already has a Neurosurgery appointment was made to evaluate the patient for NPH. The patient was admitted to the adult behavioral unit and placed on 15 minute check for safety. At a later time the patient was on Q30 minute observation and staff pass privileges. With those limits being extended, patient was safe on all checks and there were no occurrence of behavioral incidents. The patient had adequate sleep and regular appetite. Tolerated medication changes without side effects. Group therapy and services were offered. The risks, benefits, and alternative treatment options were discussed as well as of the risks of refusing treatment. Treatment associated risks discussed. After this discussion made an acknowledgement of this understanding. Follow up care appointments were put in place. The importance of monitoring for metabolic changes was discussed and acknowledgement of this understanding was made. The patient was informed not to abruptly stop or start new medications before consulting with a medical professional. Improvements in patient from the time of admission include:Less resting tremor and perioral movements. The patient expressed readiness for discharge home and looks forward to seeing her cat. She reported that she knows she is going to but is afraid to The patient denied suicidal and or homicidal ideation intent or plan. Safety precautions were put in place which included involving the patient and their family to closely monitor for changes in mental state. In addition, implementing follow up care, screening for the need to remove/securing firearms , weapons and stockpile of medications. Patient/ family instructed to immediately call 911 should any safety concerns arise. 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 AIMS score 17 due to long history of 1st generation anti- psychotic. Discontinued prolixin and cogentin due to side effects. The patient was advised of the 24 hour / 7 days a week availability of the emergency room and to call 911 in the event of an emergency such as being suicidal and/ or homicidal. The patient was informed of the contact information for [facility], Suicide Prevention and Crisis Services, National Suicide Prevention Lifeline, [facility], Alcoholics Anonymous, and [facility]. Medications started included seroquel 100mg po qhs, and increased to 200mg qhs , she showed improvement with sleep. Discontinued prolixin and cogentin due to side effects. Data shows less risk for cognitive involvement and Parkinsons with this treatment change. Metoprolol was started by medicine team for hypertension and heart rate. Box box warning with anti psychotic use in those > 65 was discussed and the increased risk to cause CVA and mortality was discussed with patient and her family. Family meeting took place before discharge. The family reported that for the last year the patient has become less independent. At this time the patient is eager for discharge and are in agreement with the discharge plan set forth by the treatment team and can safely receive care in the less restrictive outpatient setting. They were advised on how the days following discharge can be a vulnerable period and to look out for warning signs associated with decompensation and progression of mental illness. They were notified of the resources available in the event these situations arise and confirmed that the patient has no access to firearms or stockpiles of medications. Nursing care referral was made. The patients family plan to take care of her until the nursing care facility becomes available. Consults included to hospitalist for evaluation and tests ordered and recommendations made and treatment was implemented. Patient was not assaultive or a behavioral problem during the course of admission. The patient showed the need for assistance in completing activities of daily living. Her family was provided with a list of assisted care resources and a referral was made. Patient will be discharged to live at home with her family. Follow up appointment at [facility], PCP and Neurologist. Neurosurgery. Patient informed of follow up appointment times. See more details for follow up care in the discharge plan. Risk factors were mitigated by establishing the patients baseline with close contacts and arranging a family meeting. Implementing precautionary safety measures by confirming no stockpiles of medications and no access to firearms , providing mental health treatment, stabilization of mental illness features, arrangement of outpatient continuation of care, as well as provided a supportive care environment and therapy resources during the course of hospitalization. Safety plan was reviewed and discussed with the patient and caregivers. They manage her medications and visit her daily. Risk factors: , single, history of mental illness. Prior history of a suicide attempt. Protective factors: Currently no suicidal ideation, intent or plan. No suicide attempts in the last year. Has social/ family support system. No history of service. Currently no feelings of hopelessness, not in an occupation of social isolation, doesnt have multiple medical conditions, no family history of suicide, doesnt have access to firearms. Doesnt have command hallucinations and or psychotic features at this time. No current substance abuse. No current alcohol abuse. Not an anniversary of a loss of a loved one. No changes in relationship status , housing, job, or school. Currently future orientated. Patient engaged in treatment and compliant with medication. Sodium 137 mmol/L (135-145) 06/08/19 09:57 Potassium 3.9 mmol/L (3.5-5.0) 06/08/19 09:57 BUN 11 mg/dL (6-24) 06/08/19 09:57 Creatinine 0.65 mg/dL (0.51-0.95) 06/08/19 09:57 Calcium 9.5 mg/dL (8.6-10.3) 06/08/19 09:57 Magnesium 2.1 mg/dL (1.9-2.7) 06/08/19 09:57 AST 15 U/L (13-39) 06/08/19 09:57 ALT 14 U/L (7-52) 06/08/19 09:57 Triglycerides 95 mg/dL 06/10/19 07:21 Cholesterol 143 mg/dL 06/10/19 07:21 LDL Cholesterol 79 mg/dL 06/10/19 07:21 Merits Inpatient Hospitalization: No Clear for Discharge: Adequate Clinical Respons Discharge Planning - Discharge Planning Discharge Plan: Outpatient Follow Up Outpatient Program: [facility] Recommendations for Continuing Care: Medication Management Medications: Current Medications Acetaminophen (Tylenol Tab*) 650 mg PO Q4H PRN PRN Reason: for pain; or Temp >101 F Al Hydrox/Mg Hydrox/Simethicone (Maalox Plus*) 30 ml PO Q4H PRN PRN Reason: INDIGESTION Metoprolol Tartrate (Lopressor Tab*) 25 mg PO BID [facility] Last Admin: 06/10/19 08:44 Dose: 25 mg Multivitamins (Theragran Tab*) 1 tab PO DAILY [facility] Last Admin: 06/10/19 08:44 Dose: 1 tab Quetiapine Fumarate (Seroquel Tab*) 100 mg PO BEDTIME [facility] Last Admin: 06/09/19 21:25 Dose: 100 mg Discharge Planning: Prescriptions provided for discharge [x] Yes [] No Follow up care details as per social work arrangements. Patient response to discharge plan: [] eager for discharge [x] agreeable with discharge plan [] ambivalent about discharge [] disagrees with discharge today
--- NOTE | 2019-06-10 13:31 | PN ---
Subjective - Subjective Date of Service: 06/10/19 Service Type: 04001 Hosp care 35 min high complexity Subjective: Nursing Report: Patient was visible on unit, no behavioral incidents. Slept overnight. CC: "I dont know Patient was seen and evaluated today. She was unable to remember a encounter from earlier. She reported that she doesnt know if she wants family to live with her or go to a long-term. She said she rather bath at her own house and doesnt want to be here. She said I have seen what happens in nursing homes, people in a few years. She was unable to recall getting medication last evening. Her family is worried that she is unable to care for herself at home, they stated they would help her until a nursing care facility is located. She reported having adequate appetite and sleep. Patient reported that she is tolerating medications without side effects. Objective - General Observations Appearance: Neat Appears Stated Age: Yes Stature: WNL Posture: Slumped Eye Contact: Avoidant Behavior/Activity: Slowed - Interaction Observations Attitude Towards Examiner: Confused Stated Mood: Dysphoric Affect: Blunted Speech Pattern/Tone: Rambling Thought Process: Coherent Perception: WNL Thought Content: Self-Deprecatory Hallucination Type: None Delusion Type: None - Cognitive Function Orientation: Person Level of Consciousness: Awake - Medication Compliance Cooperative with Inpatient Medication Regimen: Yes - Group Participation Participates in Group Activities: Partial Assessment - Assessment Merits Inpatient Hospitalization: For Immediate Safety Clinical Impression: 68 year old with history of schizophrenia and 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 Plan - Plan Treatment Plan: Name: MARY MCDONALD Birthdate: 1950 [id number] #Q30 minute observation with staff pass # The patient requires psychiatric inpatient admission at this time to assure safety, receive treatment and work toward stabilization. EKG ordered # Family meeting today # CT brain completed 3 weeks ago per family and was normal and plan to bring report # Vitamin B12 and RPR # Cognitive impairment started 4 years ago and has progressively gotten worse and she has started to have trouble taking care of herself. # Collaboration with Social Work and visiting nurse services are being explored # AIMS score 17 due to long history of 1st generation anti- psychotic # Discontinue prolixin and cogentin due to side effects. # Increase seroquel 200mg po qhs. # Neurology outpatient follow up arranged # Hospitalist consult completed for hypertension and tachycardia and plan to treatment started. #Goals before discharge include: Assure safety Tentative Discharge: Continued Medication Management: Continue Outpt Medication Medications: Current Medications Acetaminophen (Tylenol Tab*) 650 mg PO Q4H PRN PRN Reason: for pain; or Temp >101 F Al Hydrox/Mg Hydrox/Simethicone (Maalox Plus*) 30 ml PO Q4H PRN PRN Reason: INDIGESTION Metoprolol Tartrate (Lopressor Tab*) 25 mg PO BID [facility] Last Admin: 06/10/19 08:44 Dose: 25 mg Multivitamins (Theragran Tab*) 1 tab PO DAILY [facility] Last Admin: 06/10/19 08:44 Dose: 1 tab Quetiapine Fumarate (Seroquel Tab*) 100 mg PO BEDTIME [facility] Last Admin: 06/09/19 21:25 Dose: 100 mg - Discharge Plan Discharge Plan: Inpatient Hospitalization [facility]
[2019-06-10] MEDS ORDERED: QUEtiapine TAB* 100 MG PO SCH (21:00)
[2019-06-11] MEDS: Vitamin THERAPEUTIC TAB PO SCH (09:32)
[2019-06-11] MEDS: Metoprolol Tartrate TAB* 25 MG PO SCH (09:32)
--- NOTE | 2019-06-11 09:47 | PN ---
Subjective Date of Service: 06/11/19 Interval History: patient seen this morning during her medication intake. She is ambulating, eager to go home. She is taking her PO meds and tolerating well. her vitals reviewed and her pulse improved from over 120's down to 80's, however her pulse on exam seems to be tachycardic but regular. Will get EKG to document her rhythm. no chest pain Past Medical History: Unchanged from Admission Objective Active Medications: Acetaminophen (Tylenol Tab*) 650 mg PO Q4H PRN PRN Reason: for pain; or Temp >101 F Al Hydrox/Mg Hydrox/Simethicone (Maalox Plus*) 30 ml PO Q4H PRN PRN Reason: INDIGESTION Metoprolol Tartrate (Lopressor Tab*) 25 mg PO BID [facility] Last Admin: 06/11/19 09:32 Dose: 25 mg Multivitamins (Theragran Tab*) 1 tab PO DAILY [facility] Last Admin: 06/11/19 09:32 Dose: 1 tab Quetiapine Fumarate (Seroquel Tab*) 200 mg PO BEDTIME [facility] Last Admin: 06/10/19 19:51 Dose: 200 mg Oxygen Devices in Use Now: None Appearance: awake, alert no distress. ambulating Ears/Nose/Mouth/Throat: NL Teeth, Lips, Gums, Mucous Membranes Moist Neck: NL Appearance and Movements; NL JVP Respiratory: Symmetrical Chest Expansion and Respiratory Effort, Clear to Auscultation Cardiovascular: - - tachyardic but regular Abdominal: NL Sounds; No Tenderness; No Distention Result Diagrams: 06/08/19 09:57 06/08/19 09:57 Assess/Plan/Problems-Billing Assessment: 68 y/o female in [facility] medicine consulted for tachycardia, sinus tach on ECG - Patient Problems (1) Sinus tachycardia Current Visit: Yes Status: Acute Code(s): R00.0 - TACHYCARDIA, UNSPECIFIED SNOMED Code(s): 88637850 Comment: - Echo no dilated cardiomyopathy - TSH normal 1.53 - Her vitals in chart shows good response to her lopressor 25 mg bid. I will get EKG to document rhythm and if she remains sinus I would recommend discharge her on lopressor 25 mg bid one month supply and to follow up with PCP for further titration for BP meds - ECG ordered (2) Tremors of nervous system Current Visit: Yes Status: Acute Code(s): R25.1 - TREMOR, UNSPECIFIED SNOMED Code(s): 53503397 Comment: - Etiology uncler. differrential could be essential tremors and beta trish should help a little. Other differential could be from her previous psychotic side effect causing mild TD and hopefully it should improve with the discontiuations. Last, she does have mask facial features and she may have parkinsons. Her pcp to consider referral to neurology outpatient. (3) Schizophrenia Current Visit: Yes Status: Acute Code(s): F20.9 - SCHIZOPHRENIA, UNSPECIFIED SNOMED Code(s): 89953431 Comment: - as per psych
[2019-06-11 10:33] VITALS: BP 113/69
== END 2019-06-11 13:58 | disposition home or self-care (01) | DRG 885 ==
LOC: ED 09:14 → BSU 12:49
PROVIDERS: ADMIT Psychiatry & Neurology Psychiatry; ATTEND Psychiatry & Neurology Psychiatry
DX: F20.9 Schizophrenia, unspecified (principal); G21.11 Neuroleptic induced parkinsonism; R45.851 Suicidal ideations; G91.2 (Idiopathic) normal pressure hydrocephalus; I10 Essential (primary) hypertension; M19.90 Unspecified osteoarthritis, unspecified site; G89.29 Other chronic pain; M79.651 Pain in right thigh; G25.81 Restless legs syndrome; G24.01 Drug induced subacute dyskinesia; T44.3X5A Adverse effect of other parasympatholytics [anticholinergics and antimuscarinics] and spasmolytics, initial encounter; R00.0 Tachycardia, unspecified; I08.1 Rheumatic disorders of both mitral and tricuspid valves; T43.3X5A Adverse effect of phenothiazine antipsychotics and neuroleptics, initial encounter; Z88.2 Allergy status to sulfonamides; Z91.5 Personal history of self-harm; Y92.009 Unspecified place in unspecified non-institutional (private) residence as the place of occurrence of the external cause
CPT/HCPCS: 36415; 80053; 80061; 82607; 83036; 83735; 84443; 85025; 86140; 86780; 90732; 93005; 93306; 99222; 99233; 99238; 99284; A9270-GY

== ENCOUNTER 2020-11-14 17:32 | Observation (INO) ==
[2020-11-14 19:34] LABS: ABS Basophils 0.1 10^3/ul (0-0.2); ABS Lymphocytes 1.2 10^3/ul (1.0-4.8); ABS Monocytes 1.1 10^3/ul (0-0.8); ABS Neutrophils 11.2 10^3/ul (1.5-7.7); Eosinophil % 0.3 %; Hematocrit 40 % (35-47); Hemoglobin 13.3 g/dL (12.0-16.0); Lymphocyte % 8.6 %; Mean Corpuscular HGB Conc 34 g/dL (31-36); Mean Corpuscular Hemoglobin 27 pg (27-31); Mean Corpuscular Volume 81 fL (80-97); Mean Platelet Volume 7.7 fL (7.4-10.4); Platelet Count 495 10^3/uL (150-450); Red Blood Count 4.87 10^6 /uL (3.70-4.87); Red Cell Distribution Width 13 % (10-15); White Blood Count 13.5 10^3/uL (3.5-10.8)
[2020-11-14 19:50] LABS: Albumin/Globulin Ratio 1.5 (1-3); BUN/Creatinine Ratio 22.9 (8-20); C Reactive Protein 87.85 mg/L (<8.01); Calcium 9.2 mg/dL (8.6-10.3); EGFR African American 99.8 (>60); EGFR Non-African American 82.5 (>60); Globulin 2.6 g/dL (2-4); Potassium 3.6 mmol/L (3.5-5.0); Total Bilirubin 0.6 mg/dL (0.2-1.0); Total Protein 6.6 g/dL (6.4-8.9)
[2020-11-14] MEDS ORDERED: Al Hydrox/Mg Hydrox/Simet LIQ 30 ML UDC PO PRN (20:57)
[2020-11-14 22:58] LABS: Troponin I 0.03 ng/mL (<0.03)
[2020-11-14] MEDS: Heparin 5000 UNITS/ML 1 mL VIAL SUBCUT SCH (23:19)
[2020-11-15] MEDS: Heparin 5000 UNITS/ML 1 mL VIAL SUBCUT SCH ×3 (05:24→21:05)
[2020-11-15 09:43] LABS: Urine Appearance Turbid; Urine Bilirubin Negative (Negative); Urine Blood 2+ (Negative); Urine Color Yellow; Urine Glucose Negative (Negative); Urine Ketones Trace (Negative); Urine Nitrite Negative (Negative); Urine Protein 1+(30 mg/dL) (Negative); Urine Specific Gravity 1.023 (1.010-1.030); Urine Urobilinogen Negative (Negative)
[2020-11-15 09:50] LABS: Urine Bacteria 1+ (Absent); Urine Red Blood Cell 3+(>10/hpf) (Absent); Urine Renal Epithelial Cells Present (Absent); Urine Squamous Epithelial Cell Present (Absent); Urine White Blood Cell 3+(>20/hpf) (Absent)
[2020-11-16 06:04] LABS: ABS Eosinophils 0.1 10^3/ul (0-0.6); ABS Lymphocytes 1.7 10^3/ul (1.0-4.8); ABS Monocytes 0.7 10^3/ul (0-0.8); ABS Neutrophils 3.4 10^3/ul (1.5-7.7); Eosinophil % 1.7 %; Hematocrit 34 % (35-47); Hemoglobin 11.7 g/dL (12.0-16.0); Lymphocyte % 29.4 %; Mean Corpuscular HGB Conc 34 g/dL (31-36); Mean Corpuscular Hemoglobin 27 pg (27-31); Mean Corpuscular Volume 80 fL (80-97); Mean Platelet Volume 7.6 fL (7.4-10.4); Nucleated Red Blood Cells % 0.1; Platelet Count 347 10^3/uL (150-450); Red Cell Distribution Width 13 % (10-15)
[2020-11-16] MEDS: Heparin 5000 UNITS/ML 1 mL VIAL SUBCUT SCH ×3 (06:07→20:46)
[2020-11-16 06:24] LABS: BUN/Creatinine Ratio 29.1 (8-20); Calcium 8.8 mg/dL (8.6-10.3); EGFR African American 131.8 (>60); Potassium 3.4 mmol/L (3.5-5.0)
[2020-11-16] MEDS ORDERED: Potassium Chlor 20 meq TAB.ER PO ONE (07:20)
[2020-11-17] MEDS: Heparin 5000 UNITS/ML 1 mL VIAL SUBCUT SCH (05:12)
[2020-11-17 05:47] LABS: ABS Eosinophils 0.1 10^3/ul (0-0.6); ABS Lymphocytes 1.5 10^3/ul (1.0-4.8); ABS Monocytes 0.5 10^3/ul (0-0.8); ABS Neutrophils 2.8 10^3/ul (1.5-7.7); Eosinophil % 2.6 %; Hematocrit 35 % (35-47); Hemoglobin 11.9 g/dL (12.0-16.0); Lymphocyte % 29.6 %; Mean Corpuscular HGB Conc 34 g/dL (31-36); Mean Corpuscular Hemoglobin 27 pg (27-31); Mean Corpuscular Volume 81 fL (80-97); Nucleated Red Blood Cells % 0.1; Platelet Count 343 10^3/uL (150-450); Red Blood Count 4.33 10^6 /uL (3.70-4.87); Red Cell Distribution Width 13 % (10-15)
[2020-11-17 05:53] LABS: BUN/Creatinine Ratio 26.8 (8-20); Calcium 8.8 mg/dL (8.6-10.3); EGFR African American 129.1 (>60); EGFR Non-African American 106.7 (>60); Potassium 3.6 mmol/L (3.5-5.0)
[2020-11-17 09:54] LABS: C Reactive Protein 27.47 mg/L (<8.01)
[2020-11-17 12:08] VITALS: BP 109/66
== END 2020-11-17 15:00 ==
LOC: ED 17:32 → MEDTELE 17:32
PROVIDERS: ADMIT Internal Medicine; ATTEND Hospitalist